=== PATIENT | female | born 1960 | race Caucasian/White ===

== ENCOUNTER → 2016-10-09 | Outpatient (CLI) | payer MEDICAID ==
[~2016-10-09] VITALS: Ht 165.1 cm; Wt 113.6 kg
[~2016-10-09] MED LIST: ASPIRIN 81M81 MG/TA2 PO; BIOTIN10000 MC1 PO; CALCIUM 600-D 61 TAB PO; CARAFATE 1GM1 G PO; CARDURA 2MG2 MG PO; FLONASE NASAL S16 GM NS; GENTAMICIN EYE D5 ML OD; IBU600 MG PO; LASIX 40MG TABL40 MG PO; LOPRESSOR 225 MG/TAB PO; MULTI VITAMINS1 TAB PO; MYRBETR50MG PO; NATURAL POTASS595 MG PO; NORCO 325 MG-51 TAB PO; PATADAY 2.5 ML2.5 ML OU; PHARMASSURE GA500 MG PO; PRIL40 PO; SALAGEN 5MG TAB5 MG PO; TIROSINT100 MC1 PO; VITAMIN D 1001000 IU PO; ZOFRAN ODT4 MG PO; [UNRECOGNIZED DRUG - OTHER] PO
[2016-10-09 09:43] VITALS: BP 134/76; PULSE 74
[2016-10-09 10:40] VITALS: BP 125/64; PULSE 77
[2016-10-09 11:00] VITALS: BP 113/67; PULSE 66
== END ==
LOC: COL.RAD 09:16
DX: D34 Benign neoplasm of thyroid gland (principal)
CPT/HCPCS: 25581

== ENCOUNTER → 2016-10-23 | Outpatient (CLI) | payer MEDICAID ==
[~2016-10-23] VITALS: Ht 165.1 cm; Wt 112.7 kg
[2016-10-23 12:16] VITALS: BP 135/53; PULSE 61
[2016-10-23 13:10] VITALS: BP 132/82; PULSE 57
[2016-10-23 13:25] VITALS: BP 111/65; PULSE 60
== END ==
LOC: COL.RAD 11:26
DX: E04.1 Nontoxic single thyroid nodule (principal)

== ENCOUNTER → 2016-12-29 | Outpatient (CLI) | payer MEDICAID | LOC: COL.RAD 08:23 | DX: R13.19 Other dysphagia (principal) | CPT/HCPCS: G8996-GN; G8997-GN; G8998-GN ==

== ENCOUNTER 2017-02-04 10:00 | Outpatient (RCR) | payer MEDICAID ==
[~2017-02-04 10:00] MED LIST changes: -BIOTIN10000 MC1 PO; -IBU600 MG PO; -MULTI VITAMINS1 TAB PO; -NORCO 325 MG-51 TAB PO; -PHARMASSURE GA500 MG PO; -TIROSINT100 MC1 PO; -VITAMIN D 1001000 IU PO; -ZOFRAN ODT4 MG PO
[2017-02-19] MEDS ORDERED: MULTI VITAMINS1 TAB PO (11:38)
[2017-02-19] MEDS ORDERED: BIOTIN10000 MC1 PO (11:38)
[2017-02-19] MEDS ORDERED: PHARMASSURE GA500 MG PO (11:39)
[2017-02-19] MEDS ORDERED: VITAMIN D 1001000 IU PO (11:39)
[2017-02-19] MEDS ORDERED: TIROSINT100 MC1 PO (11:40)
[2017-02-19] MEDS ORDERED: NORCO 325 MG-51 TAB PO (13:40)
[2017-02-19] MEDS ORDERED: ZOFRAN ODT4 MG PO (13:41)
[2017-02-19] MEDS ORDERED: IBU600 MG PO (13:41)
== END 2017-03-22 | disposition home or self-care (01) ==
LOC: WSST
DX: R13.10 Dysphagia, unspecified (principal)
CPT/HCPCS: G8996-GN; G8997-GN

== ENCOUNTER 2017-02-19 10:06 | Day surgery (SDC) | payer MEDICAID ==
[~2017-02-19] VITALS: Ht 162.6 cm; Wt 111.2 kg
[2017-02-19] VITALS (10 sets, daily range): BP systolic 96–138; BP diastolic 51–76; PULSE 53–73; TEMP 97.5–98.3
[2017-02-19] MEDS ORDERED: MULTI VITAMINS1 TAB PO (11:38)
[2017-02-19] MEDS ORDERED: BIOTIN10000 MC1 PO (11:38)
[2017-02-19] MEDS ORDERED: PHARMASSURE GA500 MG PO (11:39)
[2017-02-19] MEDS ORDERED: VITAMIN D 1001000 IU PO (11:39)
[2017-02-19] MEDS ORDERED: TIROSINT100 MC1 PO (11:40)
[2017-02-19] MEDS ORDERED: NORCO 325 MG-51 TAB PO (13:40)
[2017-02-19] MEDS ORDERED: IBU600 MG PO (13:41)
[2017-02-19] MEDS ORDERED: ZOFRAN ODT4 MG PO (13:41)
== END 2017-02-19 19:35 | disposition home or self-care (01) ==
LOC: SDCO 10:06
DX: K80.10 Calculus of gallbladder with chronic cholecystitis without obstruction (principal); K21.9 Gastro-esophageal reflux disease without esophagitis; I49.9 Cardiac arrhythmia, unspecified; E06.3 Autoimmune thyroiditis; I34.1 Nonrheumatic mitral (valve) prolapse; J45.909 Unspecified asthma, uncomplicated; I10 Essential (primary) hypertension; M19.90 Unspecified osteoarthritis, unspecified site; I34.0 Nonrheumatic mitral (valve) insufficiency; R06.02 Shortness of breath; R60.9 Edema, unspecified
CPT/HCPCS: J1100; J1170; J1885; J2405; J2704; J2710; J3010; J7120; Q9967

== ENCOUNTER → 2017-09-29 | Outpatient (CLI) | payer MEDICAID ==
[~2017-09-29] MED LIST changes: +BIOTIN10000 MC1 PO; +IBU600 MG PO; +MULTI VITAMINS1 TAB PO; +NORCO 325 MG-51 TAB PO; +PHARMASSURE GA500 MG PO; +TIROSINT100 MC1 PO; +VITAMIN D 1001000 IU PO; +ZOFRAN ODT4 MG PO
== END ==
LOC: COL.RAD 10:43
DX: R10.31 Right lower quadrant pain (principal); Z98.890 Other specified postprocedural states; Z96.0 Presence of urogenital implants

== ENCOUNTER → 2018-03-04 | Outpatient (CLI) | payer MEDICAID | LOC: COL.RAD 10:13 | DX: G43.109 Migraine with aura, not intractable, without status migrainosus (principal) | CPT/HCPCS: A9585 ==

== ENCOUNTER → 2018-03-08 | Outpatient (CLI) | payer MEDICAID | LOC: COL.RAD 11:18 | DX: G43.109 Migraine with aura, not intractable, without status migrainosus (principal); Z90.89 Acquired absence of other organs | CPT/HCPCS: Q9967 ==

== ENCOUNTER 2018-08-19 11:14 | Emergency (ER) | payer MEDICAID ==
[~2018-08-19] VITALS: Ht 162.6 cm; Wt 90.9 kg
[2018-08-19 11:21] VITALS: TEMP 97.3
[2018-08-19 12:12] LABS: ALANINE AMINOTRANSFERASE 36 U/L (9-52); ALBUMIN 4.5 gm/dL (3.5-5.0); ALKALINE PHOSPHATASE 70 U/L (50-136); ANION GAP 4 mmol/L (7-16); AST,SGOT 24 U/L (15-37); BILIRUBIN,TOTAL 0.8 mg/dL (0.0-1.0); BLOOD UREA NITROGEN 26 mg/dL (7-17); CALCIUM 9.6 mg/dL (8.4-10.2); CARBON DIOXIDE 29 mmol/L (22-30); CHLORIDE 107 mmol/L (98-107); CREATININE, serum 1.04 mg/dL (0.52-1.25); GLUCOSE 95 mg/dL (74-106); LIPASE 123 U/L (23-300); POTASSIUM 4.1 mmol/L (3.4-5.0); SODIUM 140 mmol/L (137-145); TOTAL PROTEIN 7.3 gm/dL (6.4-8.2)
[2018-08-19 12:13] LABS: BASO % 0.4 % (0.0-2.0); EOS % 0.4 % (0-4.0); GRAN # 6.5 (1.4-6.5); GRAN % 69.7 % (42.2-75.2); HEMATOCRIT 40.4 % (37.0-47.0); HEMOGLOBIN 13.7 g/dl (12.5-16.0); LYMPH # 2.1 (1.2-3.4); MEAN CELL VOLUME 88 fl (80.0-100.0); MEAN CORPUSCULAR HEMOGLOBIN 30 pg (27.0-31.0); MEAN CORPUSCULAR HGB CONC 34 g/dl (33.0-37.0); MEAN PLATELET VOLUME 11.7 fl (7.4-10.4); MONO # 0.6 (0.1-0.6); MONO % 6.4 % (1.7-9.3); PLATELET COUNT 188 K/mm3 (130-400); RED BLOOD COUNT 4.59 M/mm3 (4.10-5.30)
[2018-08-19 12:22] LABS: TROPONIN-I < 0.012 ng/mL (0.000-0.034)
[2018-08-19] MEDS ORDERED: FLEXERIL 1010 MG/TAB PO (13:24)
[2018-08-19] MEDS ORDERED: LIDODERM 5% PATC1 EA TP (13:25)
[2018-08-19] MEDS ORDERED: VITAMIN D32000 I1 PO (14:26)
[2018-08-19] MEDS ORDERED: PHARMASSURE MA500 MG PO (14:26)
[2018-08-19] MEDS ORDERED: GLUCOSAMINE & C1 TAB PO (14:27)
[2018-08-19] MEDS ORDERED: VITAMIN B COMPL1 SGL PO (14:27)
[2018-08-19] MEDS ORDERED: OMEGA-31 SGL PO (14:27)
[2018-08-19] MEDS ORDERED: NATURAL POTASS595 MG (14:27)
[2018-08-19] MEDS ORDERED: DULCOLAX STOOL100 MG PO (14:28)
[2018-08-19] MEDS ORDERED: PRIL40 PO (14:28)
[2018-08-19] MEDS ORDERED: ZINC LOZENGES1 LOZ (14:28)
[2018-08-19] MEDS ORDERED: TOPROL XL 25MG25 MG PO (14:28)
[2018-08-19] MEDS ORDERED: LASIX 40MG TABL40 MG PO (14:29)
[2018-08-19] MEDS ORDERED: CIPRO 500MG TA500 MG PO (14:29)
[2018-08-19] MEDS ORDERED: LEVOXYL0.075 MG PO (14:29)
[2018-08-19] MEDS ORDERED: CYTOMEL 5MC5 MCG/TAB PO (14:29)
[2018-08-19 14:45] VITALS: BP 111/59; PULSE 62
== END 2018-08-19 15:01 | disposition home or self-care (01) ==
LOC: COL.ER 11:14
PROVIDERS: Emergency Medicine
DX: S29.012A Strain of muscle and tendon of back wall of thorax, initial encounter (principal); K08.89 Other specified disorders of teeth and supporting structures; Z79.82 Long term (current) use of aspirin; X50.0XXA Overexertion from strenuous movement or load, initial encounter
CPT/HCPCS: J1170; J2405

== ENCOUNTER → 2018-11-30 | Outpatient (CLI) | payer MEDICAID | LOC: COL.RAD 12:20 | DX: M50.30 Other cervical disc degeneration, unspecified cervical region (principal) ==

== ENCOUNTER → 2019-02-23 | Outpatient (CLI) | payer MEDICAID ==
[~2019-02-23] MED LIST changes: +CIPRO 500MG TA500 MG PO; +CYTOMEL 5MC5 MCG/TAB PO; +DULCOLAX STOOL100 MG PO; +FLEXERIL 1010 MG/TAB PO; +GLUCOSAMINE & C1 TAB PO; +LEVOXYL0.075 MG PO; +LIDODERM 5% PATC1 EA TP; +NATURAL POTASS595 MG; +OMEGA-31 SGL PO; +PHARMASSURE MA500 MG PO; +TOPROL XL 25MG25 MG PO; +VITAMIN B COMPL1 SGL PO; +VITAMIN D32000 I1 PO; +ZINC LOZENGES1 LOZ
== END ==
LOC: COL.RAD 10:19
DX: M54.17 Radiculopathy, lumbosacral region (principal)

== ENCOUNTER → 2019-07-15 | Outpatient (CLI) | payer MEDICAID | LOC: MC.RAD 11:03 | DX: Z12.31 Encounter for screening mammogram for malignant neoplasm of breast (principal) ==

== ENCOUNTER → 2019-11-01 | Outpatient (CLI) | payer MEDICAID | LOC: COL.RAD 06:35 | DX: K92.1 Melena (principal); R19.7 Diarrhea, unspecified; R11.0 Nausea | CPT/HCPCS: A9541 ==

== ENCOUNTER → 2020-04-10 | Outpatient (CLI) | payer MEDICAID | LOC: COL.RAD 11:15 | DX: M40.294 Other kyphosis, thoracic region (principal); M47.812 Spondylosis without myelopathy or radiculopathy, cervical region; R20.2 Paresthesia of skin ==

== ENCOUNTER 2020-04-25 10:00 | Outpatient (RCR) | payer MEDICAID | END 2020-06-28 | disposition home or self-care (01) | LOC: MKS.ESL.PT | DX: M54.2 Cervicalgia (principal) ==

== ENCOUNTER → 2021-02-08 | Outpatient (CLI) | payer MEDICAID ==
[~2021-02-08] MED LIST changes: +IMODIUM 2MG CAPS2 MG PO; +LEVOTHYROXINE PO; +MOBIC15 MG PO; +OSCAL 500 TAB500 MG; +PEPCID40 MG PO; +PROBIOTIC ACID1 EAC3 PO; +VITAMINC1000TA PO; +ZEBETA 5MG5 MG PO; +[UNRECOGNIZED DRUG - OTHER] PO
== END ==
LOC: COL.RAD 09:43
DX: D18.03 Hemangioma of intra-abdominal structures (principal); K76.9 Liver disease, unspecified; Z90.49 Acquired absence of other specified parts of digestive tract; Z96.89 Presence of other specified functional implants
CPT/HCPCS: Q9967

== ENCOUNTER 2021-04-12 08:07 | Outpatient (CLI) | payer MEDICAID ==
[2021-04-12] VITALS (7 sets, daily range): BP systolic 95–125; BP diastolic 51–82; PULSE 52–64
[~2021-04-12 08:07] MED LIST changes: -IMODIUM 2MG CAPS2 MG PO; -LEVOTHYROXINE PO; -MOBIC15 MG PO; -OSCAL 500 TAB500 MG; -PEPCID40 MG PO; -PROBIOTIC ACID1 EAC3 PO; -VITAMINC1000TA PO; -ZEBETA 5MG5 MG PO; -[UNRECOGNIZED DRUG - OTHER] PO
[2021-04-12] MEDS ORDERED: LEVOTHYROXINE PO (08:48)
[2021-04-12] MEDS ORDERED: [UNRECOGNIZED DRUG - OTHER] PO (08:53)
[2021-04-12] MEDS ORDERED: PEPCID40 MG PO (08:59)
[2021-04-12] MEDS ORDERED: FLONASE NASAL S16 GM NS (09:03)
[2021-04-12] MEDS ORDERED: PROBIOTIC ACID1 EAC3 PO (09:04)
[2021-04-12] MEDS ORDERED: VITAMINC1000TA PO (09:05)
[2021-04-12] MEDS ORDERED: OSCAL 500 TAB500 MG (09:07)
[2021-04-12] MEDS ORDERED: ZEBETA 5MG5 MG PO (09:14)
[2021-04-12] MEDS ORDERED: MOBIC15 MG PO (09:15)
[2021-04-12] MEDS ORDERED: IMODIUM 2MG CAPS2 MG PO (09:15)
--- NOTE | 2021-04-12 09:32 | NUR ---
SEE MERGE DOCUMENTATION FOR MEDICATION ADMINISTRATION TIMES AND INTRA/POST PROCEDURE SEDATION ASSESSMENTS.
--- NOTE | 2021-04-12 10:00 | NUR ---
PT TO [facility] VIA BED FROM MANAGER BANQUET, DRESSING OVER UPPER CHEST IS CLEAN AND DRY. PT HAS EYES CLOSED, BUT OPENS THEM AND TALKS WITH STAFF, CALL LIGHT IN REACH. SIPS ON WATER
--- NOTE | 2021-04-12 10:45 | NUR ---
CON'T SAME, LUNCH ORDERED, SITS UP IN BED
--- NOTE | 2021-04-12 12:15 | NUR ---
PT SITS ON SIDE OF BED, EATS LUNCH. REVIEWED DISCHARGE INST. WITH PT ON CARE OF SITE AND FOLLOWUP WITH VERBAL UNDERSTANDING. UP TO B/R IV D'CD INTACT. PT IS DRESSED AND IS WAITING ON FAMILY TO PICK HER UP
--- NOTE | 2021-04-12 13:15 | NUR ---
PT IS UP AD GREGORIO IN ROOM, DRESSING SITE REMAINS THE SAME, DISCHAGED VIA W/C TO CAR
== END 2021-04-12 13:30 | disposition home or self-care (01) ==
LOC: COL.CAR 08:07
DX: Z45.09 Encounter for adjustment and management of other cardiac device (principal); I10 Essential (primary) hypertension; E78.5 Hyperlipidemia, unspecified; E03.9 Hypothyroidism, unspecified; D50.9 Iron deficiency anemia, unspecified; J45.909 Unspecified asthma, uncomplicated; K21.9 Gastro-esophageal reflux disease without esophagitis; G47.33 Obstructive sleep apnea (adult) (pediatric); M19.90 Unspecified osteoarthritis, unspecified site; M81.0 Age-related osteoporosis without current pathological fracture; I35.9 Nonrheumatic aortic valve disorder, unspecified; I47.1 Supraventricular tachycardia; M35.00 Sjogren syndrome, unspecified; M79.7 Fibromyalgia; E66.9 Obesity, unspecified; Z90.89 Acquired absence of other organs; Z99.89 Dependence on other enabling machines and devices; Z90.49 Acquired absence of other specified parts of digestive tract; Z79.899 Other long term (current) drug therapy; Z20.822 Contact with and (suspected) exposure to COVID-19; Z79.890 Hormone replacement therapy; Z79.891 Long term (current) use of opiate analgesic
CPT/HCPCS: J1644; J2250; J3010

== ENCOUNTER → 2022-12-02 | Outpatient (RCR) | payer MEDICAID ==
[~2022-12-02] MED LIST changes: +IMODIUM 2MG CAPS2 MG PO; +LEVOTHYROXINE PO; +MOBIC15 MG PO; +OSCAL 500 TAB500 MG; +PEPCID40 MG PO; +PROBIOTIC ACID1 EAC3 PO; +VITAMINC1000TA PO; +ZEBETA 5MG5 MG PO; +[UNRECOGNIZED DRUG - OTHER] PO
== END | disposition home or self-care (01) ==
LOC: WSST
DX: R13.10 Dysphagia, unspecified (principal); R05.9 Cough, unspecified

== ENCOUNTER → 2022-12-08 | Outpatient (CLI) | payer MEDICAID | LOC: COL.RAD 15:53 | DX: R13.10 Dysphagia, unspecified (principal); R05.9 Cough, unspecified ==

== ENCOUNTER → 2023-02-10 | Outpatient (CLI) | payer MEDICAID ==
[~2023-02-10] MED LIST changes: +ESTRACE0.1 MG/GM VG; +OMEGA-3 1000 MG1 CAP PO; +XALATAN EYE DROPS OU
== END ==
LOC: COL.RAD 12:21
DX: K44.9 Diaphragmatic hernia without obstruction or gangrene (principal)